=== PATIENT | male | born 1995 | race American Indian/Alaskan Native ===

== ENCOUNTER 2017-12-25 19:58 | Emergency (ER) | payer SELFPAY ==
[2017-12-26] MEDS ORDERED: AUGMENTIN 500 MG PO ONE (01:16)
[2017-12-26] MEDS ORDERED: ULTRAM PO ONE (01:17)
--- NOTE | 2017-12-26 01:17 | Emergency Department Report ---
ED ENT HPI - General Chief complaint: Dental/Oral Stated complaint: PAIN IN MOUTH Time Seen by Provider: 12/26/17 01:13 Source: patient Mode of arrival: Ambulatory Limitations: No Limitations - History of Present Illness Initial comments: This is a 22-year-old -[place] male that presents with left side facial swelling from 2. She'll reports having wisdom tooth pulled one year ago but he got arrested shortly after and unable to follow up with dentist. Patient admits to taken another inmate's penicillin twice while incarcerated which improved symptoms. Swelling and pain return shortly after. The [facility] sent him to [place] [facility] which referred him to [facility] and he did not receive treatment. He was transferred to [facility] and unable to follow up with any of the [place] doctors. When he got out of [facility] in September he went to see the dentist because he was having swelling and pain on the left jaw where her wisdom tooth was removed. The dentist told him it is a dry socket and abscess under area where wisdom tooth was pulled. He would not be able to give him antibiotics because he did not have insurance. He advised him to follow-up in the emergency room. Patient denies difficulty swallowing, chewing, fever, drainage, chest pain, and shortness of breath. MD complaint: tooth pain -: month(s) (2 months) Location: tooth # (#17) Severity: severe Severity scale (0 -10): 8 Quality: stabbing, aching Consistency: constant Improves with: none Worsens with: eating Context- Dental: history of dental caries, poor dental care Associated Symptoms: gum swelling, toothache. denies: pain with swallowing, sore throat, tinnitus, hearing loss, discharge from ear, rhinorrhea - Related Data Previous Rx's Medication Instructions Recorded Last Taken Type Amoxicillin/Potassium Clav 1 each PO BID #20 tablet 12/26/17 Unknown Rx [Augmentin 500-125 Tablet] Ibuprofen [Motrin 800 MG tab] 800 mg PO Q8HR PRN #15 tablet 12/26/17 Unknown Rx traMADol [Ultram 50 MG tab] 50 mg PO Q6HR PRN #15 tablet 12/26/17 Unknown Rx Allergies Allergy/AdvReac Type Severity Reaction Status Date / Time No Known Allergies Allergy Unverified 12/25/17 20:23 ED Dental HPI - General Chief complaint: Dental/Oral Stated complaint: PAIN IN MOUTH Time Seen by Provider: 12/26/17 01:13 Source: patient Mode of arrival: Ambulatory Limitations: No Limitations - Related Data Previous Rx's Medication Instructions Recorded Last Taken Type Amoxicillin/Potassium Clav 1 each PO BID #20 tablet 12/26/17 Unknown Rx [Augmentin 500-125 Tablet] Ibuprofen [Motrin 800 MG tab] 800 mg PO Q8HR PRN #15 tablet 12/26/17 Unknown Rx traMADol [Ultram 50 MG tab] 50 mg PO Q6HR PRN #15 tablet 12/26/17 Unknown Rx Allergies Allergy/AdvReac Type Severity Reaction Status Date / Time No Known Allergies Allergy Unverified 12/25/17 20:23 ED Review of Systems ROS: Stated complaint: PAIN IN MOUTH Other details as noted in HPI Constitutional: denies: chills, fever ENT: dental pain (swelling at #17). denies: ear pain, throat pain, congestion Respiratory: denies: cough, shortness of breath, wheezing Cardiovascular: denies: chest pain, palpitations Gastrointestinal: denies: abdominal pain, nausea, diarrhea Neurological: denies: headache, weakness, paresthesias Psychiatric: denies: anxiety, depression ED Past Medical Hx - Past Medical History Previous Medical History?: No - Surgical History Past Surgical History?: No - Social History Smoking Status: Never Smoker Substance Use Type: Marijuana, Other - Medications Home Medications: Home Medications Medication Instructions Recorded Confirmed Last Taken Type Amoxicillin/Potassium Clav 1 each PO BID #20 tablet 12/26/17 Unknown Rx [Augmentin 500-125 Tablet] Ibuprofen [Motrin 800 MG tab] 800 mg PO Q8HR PRN #15 tablet 12/26/17 Unknown Rx traMADol [Ultram 50 MG tab] 50 mg PO Q6HR PRN #15 tablet 12/26/17 Unknown Rx ED Physical Exam - General Limitations: No Limitations General appearance: alert, in no apparent distress - ENT ENT exam: Present: mucous membranes moist, other (moderate swelling and erythema and mucosa where #17 was, tenderness) - Neck Neck exam: Present: normal inspection, lymphadenopathy (cervical enlarged lymph nodes on left, mobile, nontender) - Respiratory Respiratory exam: Present: normal lung sounds bilaterally. Absent: respiratory distress - Cardiovascular Cardiovascular Exam: Present: regular rate, normal rhythm, normal heart sounds. Absent: systolic murmur, diastolic murmur, rubs, gallop - GI/Abdominal GI/Abdominal exam: Present: soft, normal bowel sounds - Neurological Exam Neurological exam: Present: alert, oriented X3, normal gait - Psychiatric Psychiatric exam: Present: normal affect, normal mood ED Course Vital Signs 12/25/17 12/25/17 20:02 20:17 Temperature 98.1 F Pulse Rate 65 Respiratory 18 Rate Blood Pressure 133/85 O2 Sat by Pulse 99 100 Oximetry ED Medical Decision Making - Medical Decision Making This is a 22-year-old male that presents with tooth abscess and left side facial swelling for 2 months. Patient is stable and was examined by me. Given tramadol and Augmentin once in ER. Susceptible of dental abscess. Discussed plan with patient. He agreed with ER plan. Discharged home with Augmentin and tramadol. Follow up with dentist in 24-72 hours. Critical care attestation.: If time is entered above; I have spent that time in minutes in the direct care of this critically ill patient, excluding procedure time. ED Disposition Clinical Impression: Dental abscess Disposition: TO HOME OR SELFCARE Is pt being admited?: No Does the pt Need Aspirin: No Condition: Stable Instructions: Dental Abscess (ED) Additional Instructions: Complete all days of Augmentin as prescribed for 10 days. Follow up with Dentist in 24-72 hours. Prescriptions: Amoxicillin/Potassium Clav [Augmentin 500-125 Tablet] 1 each PO BID #20 tablet Ibuprofen [Motrin 800 MG tab] 800 mg PO Q8HR PRN #15 tablet PRN Reason: Pain traMADol [Ultram 50 MG tab] 50 mg PO Q6HR PRN #15 tablet PRN Reason: Pain Referrals: [facility] [Outside] - 3-5 Days [facility] [Outside] - 3-5 Days [facility] [Outside] - 3-5 Days [facility] [Outside] - 3-5 Days Time of Disposition: 01:24 Print Language: SUDANESE
[2017-12-26 01:46] VITALS: BP 130/80
== END 2017-12-26 01:46 | disposition home or self-care (01) ==
LOC: ED 19:58
DX: K04.7 Periapical abscess without sinus (principal)
CPT/HCPCS: 99282

== ENCOUNTER 2019-07-14 13:50 | Emergency (ER) | payer SELFPAY ==
[2019-07-14 15:19] VITALS: BP 127/81
--- NOTE | 2019-07-14 16:47 | Emergency Department Report ---
Chief Complaint: Urogenital-Male Stated Complaint: STD EXPOSURE Time Seen by Provider: 07/14/19 16:11 - HPI History of Present Illness: This is a 23-year-old male with no prior medical history presents to ED complaining of pain of discharge and pain associated with gonorrhea exposure. Patient states that his sexual partner told him that he needs to go get treated for gonorrhea because she was tested and treated positive for gonorrhea. Patient states that it's difficult for him to the urinate and he is having malodorous penis discharged. Patient denies fevers/chills/nausea vomiting/abdominal pain - ROS Review of Systems: As noted in HPI - Exam Vital Signs: Vital Signs 07/14/19 15:16 Temperature 97.8 F Pulse Rate 88 Respiratory 18 Rate Blood Pressure 127/81 O2 Sat by Pulse 100 Oximetry Physical Exam: GENERAL: Alert and oriented x3, no apparent distress, Normal Gait, atraumatic. SKIN: Warm and dry, No lesions, No ulceration or induration present. MSE screening note: Focused history and physical exam performed. Due to findings the following was ordered: ED Medical Decision Making - Medical Decision Making 23-year-old male presents with STD exposure to gonorrhea. ED course: he states he's unable to urinate due to pain Discussed with patient possible STD due to exposure. Discussed treatment patient is to abstain from sex 7-10 days as treatment. Discussed patient partner knowledge and treatment. Discussed the follow-up with the health department for further STD testing. Patient's alert and oriented times 3. Vital signs are normal patient is in no acute discharge. Discussed the patient that this is not a medical emergency and he may follow-up with [facility]. Patient states he will be able to pay the co-pay after speaking reregistration patient states he was going home to get the [place] and will be back. ED Disposition for MSE Clinical Impression: STD exposure Is pt being admited?: No Does the pt Need Aspirin: No Condition: Stable Referrals: CYN CM MD [Primary Care Provider] - 3-5 Days [facility] [Outside] - 3-5 Days [facility] [Outside] - 3-5 Days Forms: Work/School Release Form(ED)
== END 2019-07-14 18:48 | disposition left against medical advice (07) ==
LOC: ED 13:50
DX: Z20.2 Contact with and (suspected) exposure to infections with a predominantly sexual mode of transmission (principal)
CPT/HCPCS: 99281